=== PATIENT | female | born 1955 | race Caucasian/White ===

== ENCOUNTER → 2022-12-06 09:25 | Outpatient (CLI) | payer MEDICARE, OTHER, SELFPAY ==
--- OUTSIDE RECORDS SUMMARY | 2022-12-06 09:32 | XMS_ITS | Continuity of Care Document ---
Author Name Unknown Address [address] [place] [address] [phone] Organization [facility] Phone Care Team Providers Care Journeyman Mechanic Name Role Phone GIRISH MIRANDA Admitting GIRISH MIRANDA Unavailable BLAKE FRIED Primary Care GIRISH MIRANDA Primary Attending RESULTS Patient: ROHAN TOLLIVER Date of : [birth year] 56 LABORATORY RESULTS ORDER 200: BASIC METABOLIC P KATHI BMP (LOINC: 66186-5) ORDER DATE: November 29, 2022 8:55:00 PM UTC Specimen Source: PLASMA PERFORMING LAB: [address] [id number] Result Comment: Final Result Date: November 29, 2022 9:13:00 PM [facility] (TECH: CMG) LOINC TEST FLAG RESULT REFERENCE RANGE UPDA RALPH BY 2947-0 Sodium [Moles/volume ] in Blood N 139 mmol/L 136 mmol/L - 145 mmol/L November 29, 2022 9:13:00 PM UTC (TECH: CMG) 6298-4 Potassium [Moles/volume] in Blood N 4.3 mmol/L 3.5 mmol/L - 5.1 mmol/L November 29, 2022 9:13:00 PM UTC (TECH: CMG) 9-3 Chloride [Moles/volume] in Blood N 105 mmol/L 98.0 mmol/L - 107.0 mmol/L November 29, 2022 9:13:00 PM UTC (TECH: CMG) 94640-7 Carbon dioxide, tota l [Moles/volume] in Blood N 29 mmol/L 21 mmol/L - 32 mmol/L November 29, 2022 9:13:00 PM [facility] (TECH: ARGELIA) [id number]
--- OUTSIDE RECORDS SUMMARY | 2022-12-06 09:32 | XMS_ITS | Continuity of Care Document ---
Author Name Unknown Address [address] [place] [address] [phone] Organization [facility] Phone Care Team Providers Care Musical Performer Name Role Phone GIRISH MIRANDA Admitting GIRISH MIRANDA Unavailable BLAKE FRIED Primary Care GIRISH MIRANDA Primary Attending RESULTS Patient: RHOAN TOLLIVER Date of : [birth year] 56 LABORATORY RESULTS ORDER 200: BASIC METABOLIC P KATHI BMP (LOINC: 47828-9) ORDER DATE: November 29, 2022 8:55:00 PM UTC Specimen Source: PLASMA PERFORMING LAB: [address] [id number] Result Comment: Final Result Date: November 29, [...] 29, 2022 9:13:00 PM UTC (TECH: CMG) 05230-5 Carbon dioxide, tota l [Moles/volume] in Blood N 29 mmol/L 21 mmol/L - 32 mmol/L November 29, 2022 9:13:00 PM [facility] (TECH: ARGELIA) 00046-7
--- NOTE | 2022-12-06 09:39 | CT_ITS ---
APPROVED REPORT Managed Security Sales Consultant: CLINICAL INDICATION Chest Pain TECHNIQUE Image Acquisition: A 128 slice MDCT scanner (Vantrixa View) was used for data acquisition. A noncontrast coronary calcium scan was performed. A CT attenuation threshold of 130 Hounsfield units (HU) was used for the detection of calcium in contiguous voxels of 1 sq mm in area to be counted as individual lesions. Bolus tracking in the ascending aorta with a threshold of 180 HU was performed. Immediately afterwards, ECG synchronized cardiac CT was then performed from the cardiac base to apex using retrospective gating with ECG tube current modulation. A total of 85 mL of Isovue 370 mg/mL contrast medium was administered at 5 mL/sec followed by a saline flush using a biphasic injection protocol. A tube voltage of 120 KVp was used. The patient received the following medications prior to the cardiac CT. 0.8 mg of sublingual nitroglycerin. The average heart rate at the time of acquisition was 64 bpm and regular. Image Reconstruction Transaxial images were reconstructed at 0.67 mm slide thickness. Data was reviewed interactively on an advanced workstation capable of 2 and 3-dimensional displays in all conventional reconstruction formats, including multiplanar reformations, maximum intensity projections, curved multiplanar reformations, and volume rendered reconstructions. When applicable, selected routine images describing the relevant coronary anatomy and pathology were saved and sent to PACS. Complications None Technical Quality Overall image quality was fair. Coronary artery opacification was fair. Total DLP (Dose-Length Product) is 1512.8 mGy-cm. The reported value represents the total of one or more individual components during the CT acquisition of this date and at this time, and as such, the same value may appear in more than one CT report depending on the interpreting/reporting physicians. COMPARISON None FINDINGS CT Coronary Calcium Scoring LMA (Left Main Artery) = 3 LAD (Left Anterior Descending) = 0 LCX (Left Coronary Circumflex) = 0 RCA (Right Coronary Artery) = 0 Total Calcium Score = 3 using the AJ-130 method. The observed calcium score of 3 is at 49 percentile for subjects of the same age, sex, and race/ethnicity. The interpretation of the calcium heart score is based on the following continuum*: 0 = no calcified plaque detected (risk of coronary artery disease is very low ??? less than 5%) 1-10 = calcium detected in extremely minimal levels (risk of coronary diseases is still low ??? less than 10%) 11-100 = mild levels of plaque detected with certainty (mild or minimal narrowing of heart arteries is likely) 101-400 = definite,at least moderate levels of plaque detected (relatively high risk of a heart attack within 3-5 years) >401-999 = extensive levels of plaque detected (high risk of heart attack, high levels of vascular disease are present, high likelihood of at least one significant coronary narrowing) *The calcium heart score quantifies the burden of coronary calcification/plaque in the coronary arteries. The calcium heart score is not able to evaluate the presence or burden of non-calcified (i.e. soft) plaque. There is no identifiable calcification in the aortic valve, mitral annulus or mitral valve, pericardium, or myocardium. Coronary CT Angiography Coronaries have normal origin and proximal course. The coronary arterial system is right dominant. Note: Stenosis is reported as maximum percentage diameter stenosis. Stenosis grading is reported using the following scheme: Quantitative Stenosis Grading: Left Main (LM): The left main originates normally from the left sinus of Valsalva. The LM bifurcates into the left anterior de
[2022-12-06 10:26] VITALS: BP 143/76; PULSE 58; RESP 14; TEMP 36.2; O2SAT 98; BMI 29.2
[2022-12-06 10:55] LABS: Anion Gap 9.8 mEq/L (5-15); Blood Urea Nitrogen 13 mg/dl (7-17); Carbon Dioxide 30 mmol/L (22.0-30.0); Chloride 105 mmol/L (98-107); Creatinine Clearance Estimated 63 mL/min (50-200); Estimated Glomerular Filt Rate 55 ml/min (>60); GFR (African American) 67 ML/MIN (>60); Glucose 86 mg/dl (74-100); Potassium 3.8 mmoL/L (3.5-5.1); Sodium 141 mmol/L (136-145)
[2022-12-06 11:11] VITALS: BP 139/80; PULSE 66
[2022-12-06 11:19] VITALS: BP 145/73
--- NOTE | 2022-12-06 11:19 | PC.NURSE ---
nitro 0.8mg SL given at 1111. Post nitro BP stable
[2022-12-06 11:28] VITALS: BP 147/79; PULSE 68
--- NOTE | 2022-12-06 11:28 | PC.NURSE ---
CTA complete, pt brought to post-op to recover, report given to Tom Whelan RN.
[2022-12-06 11:31] VITALS: BP 141/87; PULSE 72; RESP 18; O2SAT 90
[2022-12-06 11:45] VITALS: BP 146/76; PULSE 62; RESP 18; O2SAT 96
== END ==
PROVIDERS: PCP Internal Medicine; Visit Provider Nurse Practitioner Family
DX: R94.39 Abnormal result of other cardiovascular function study (principal)
CPT/HCPCS: 75574; 80048; Q9967